=== PATIENT | male | born 1950 | race Caucasian/White ===

== ENCOUNTER 2016-10-07 11:54 | Observation (INO) | payer MEDICARE, OTHER ==
[~2016-10-07] VITALS: Ht 172.7 cm; Wt 60.8 kg
[2016-10-07 13:54] VITALS: BP 102/72; PULSE 101; TEMP 98.2
[2016-10-07] MEDS ORDERED: CYMBALTA 60MG60 MG PO (14:47)
[2016-10-07] MEDS ORDERED: TRILIPIX45 MG PO (14:48)
[2016-10-07] MEDS ORDERED: GLUCOPHAGE1000 MG PO (14:49)
[2016-10-07] MEDS ORDERED: PLAVIX 75MG TAB75 MG PO (14:50)
[2016-10-07] MEDS ORDERED: ASPIRIN 81M81 MG/TA2 PO (14:50)
[2016-10-07] MEDS ORDERED: VIAGRA100 M1 PO (14:51)
[2016-10-07] MEDS ORDERED: ZESTRIL 5MG5 MG PO (14:52)
[2016-10-07] MEDS ORDERED: TRULICITY0.75 MG/0. SQ (14:53)
[2016-10-07] MEDS ORDERED: HUMALOG100 U/ML SQ ×2 (14:55→14:57)
[2016-10-07] MEDS ORDERED: LANTUS SOLOS100 U/ML SQ (14:58)
[2016-10-07] MEDS ORDERED: LIPITOR 80MG80 MG PO (14:59)
[2016-10-07] MEDS ORDERED: VALTREX 50500 MG/TAB PO (15:00)
[2016-10-07] MEDS ORDERED: CALCIUM 600MG+D1 TAB (15:01)
[2016-10-07 19:26] LABS: HEMATOCRIT 31.7 % (42.0-52.0); MEAN CELL VOLUME 90 fl (80.0-100.0); MEAN CORPUSCULAR HEMOGLOBIN 31 pg (27.0-31.0); MEAN CORPUSCULAR HGB CONC 35 g/dl (33.0-37.0); MEAN PLATELET VOLUME 10.1 fl (7.4-10.4); PLATELET COUNT 229 K/mm3 (130-400); RED BLOOD COUNT 3.54 M/mm3 (4.20-5.60); REDCELL DISTRIBUTION WIDTH-CV 15.2 % (11.5-14.5); WHITE BLOOD COUNT 6.4 K/mm3 (4.8-10.8)
[2016-10-07 19:48] LABS: ADJUSTED CALCIUM 8.4 mg/dL (8.4-10.2); ALBUMIN 2.7 gm/dL (3.5-5.0); BILIRUBIN,TOTAL 1.2 mg/dL (0.0-1.0); CALCIUM 7.4 mg/dL (8.4-10.2); CREATININE, serum 0.68 mg/dL (0.66-1.25); POTASSIUM 3.6 mmol/L (3.4-5.0); TOTAL PROTEIN 6.2 gm/dL (6.4-8.2)
[2016-10-07 21:59] VITALS: BP 126/66; PULSE 91; TEMP 98.1
[2016-10-08] VITALS (12 sets, daily range): BP systolic 105–127; BP diastolic 54–70; PULSE 57–87; TEMP 97.8–98.4
[2016-10-08] MEDS ORDERED: NORCOELIX PO (17:16)
[2016-10-08] MEDS ORDERED: MYCELEX10 MG/TAB MM (17:17)
== END 2016-10-08 18:00 | disposition home or self-care (01) ==
LOC: SURG 11:54
PROVIDERS: Surgery
DX: E43 Unspecified severe protein-calorie malnutrition (principal); R63.4 Abnormal weight loss; B37.0 Candidal stomatitis; C79.2 Secondary malignant neoplasm of skin; C78.02 Secondary malignant neoplasm of left lung; C78.01 Secondary malignant neoplasm of right lung; C77.9 Secondary and unspecified malignant neoplasm of lymph node, unspecified; C79.51 Secondary malignant neoplasm of bone; C79.31 Secondary malignant neoplasm of brain; Z85.820 Personal history of malignant melanoma of skin; I25.10 Atherosclerotic heart disease of native coronary artery without angina pectoris; E11.9 Type 2 diabetes mellitus without complications; I73.9 Peripheral vascular disease, unspecified; E78.5 Hyperlipidemia, unspecified; K21.9 Gastro-esophageal reflux disease without esophagitis; I10 Essential (primary) hypertension
CPT/HCPCS: G0378; G0379; J1815; J2250; J2704; J3010; J7030; J7042